=== PATIENT | female | born 1930 | race Two or more races ===

== ENCOUNTER 2017-09-11 10:43 | Outpatient (CLI) | payer OTHER ==
[~2017-09-11 10:43] MED LIST: CIPRO500 MG PO; CYMBALTA30 MG; FLAGYL500MG PO; PNEU16DI2; SYNTHROID50 MCG
== END 2017-09-11 10:46 | disposition home or self-care (01) ==
LOC: SONOGRAMA 10:43
DX: E04.1 Nontoxic single thyroid nodule (principal)